=== PATIENT | female | born 1970 | race Caucasian/White ===

== ENCOUNTER 2022-05-04 16:24 | Emergency (ER) | payer OTHER ==
[2022-05-04 17:36] LABS: HEMOGLOBIN 18.9 gm/dl (12.3-15.3); RED BLOOD COUNT 5.55 M/UL (4.00-5.10); WHITE BLOOD COUNT 20.7 K/UL (4.5-11.0)
[2022-05-04 17:57] LABS: BUN/CREATININE RATIO 26 (0-10)
[2022-05-04] MEDS ORDERED: CARAFATE1 GM PO (22:27)
[2022-05-04] MEDS ORDERED: ONDANSETRON ODT4 MG SL (22:27)
[2022-05-04] MEDS ORDERED: MACROBID 100 M100 MG PO (22:27)
== END 2022-05-04 22:30 | disposition home or self-care (01) ==
LOC: ER1 16:24
DX: K76.0 Fatty (change of) liver, not elsewhere classified (principal); N39.0 Urinary tract infection, site not specified; K29.70 Gastritis, unspecified, without bleeding; F17.200 Nicotine dependence, unspecified, uncomplicated; E11.9 Type 2 diabetes mellitus without complications; K21.9 Gastro-esophageal reflux disease without esophagitis; Z88.1 Allergy status to other antibiotic agents; Z79.899 Other long term (current) drug therapy
CPT/HCPCS: 80053; 81001; 83690; 85025; 87086; 93005; 96374; 96375; 99284; Q9967